=== PATIENT | female | born 1985 | race Caucasian/White ===

== ENCOUNTER 2018-11-02 16:33 | Inpatient (IN) ==
[2018-11-02] MEDS ORDERED: OXYTOCIN/DEXTROSE 5%-WATER 30 UNITS/500 ML BAG IV ONE (21:49)
[2018-11-02] MEDS ORDERED: NALBUPHINE HCL 10 MG/ML AMPUL IV PRN ×2 (21:49)
[2018-11-02] MEDS ORDERED: ONDANSETRON 4 MG TAB.RAPDIS PO PRN (21:49)
[2018-11-02] MEDS ORDERED: RINGER'S SOLUTION,LACTATED 1,000 ML IV ONE (21:49)
[2018-11-02] MEDS ORDERED: LIDOCAINE HCL 50 ML VIAL PERI PRN (21:49)
--- NOTE | 2018-11-02 22:04 | HP ---
Chief Complaint - Chief Complaint Date of Service: 11/02/18 Time of Service: 22:00 Chief Complaint: induction of labor History of Present Illness: The patient presented to the office for an unscheduled visit due to decreased movement. She had an NST in the office that was reactive but did have a deceleration. For that reason a BPP was ordered and the total score was 8/10 minus 2 points for breathing. She reported irregular ctx. She denied vaginal bleeding or loss of fluid. Fetus was active. Medical History (Last Reviewed 11/02/18 @ 17:05 by Roxanne Aquino RN) ADHD (attention deficit hyperactivity disorder) Chronic ITP (idiopathic thrombocytopenic purpura) Dr. [facility] Hypoglycemia Abnormal Pap smear of cervix Onset Date: ~2011 HPV History of wisdom tooth extraction Infectious mononucleosis Onset Date: ~2002 jaundice, caused ITP Dysmenorrhea Ovarian cyst Surgical History: Surgical History (Last Reviewed 11/02/18 @ 17:05 by Roxanne Aquino RN) History of colposcopy History of laparoscopy Onset Date: ~07/2014 Family History: Family History (Last Reviewed 11/02/18 @ 17:05 by Roxanne Aquino RN) Mother Benign heart murmur Uterine fibroid hysterectomy Sister Thyroid disease Father Alive and well Grandfather Cancer Prostate CA Celiac disease Social History: Preferred Language Thai Smoking Status Current every day smoker (Last Updated 11/02/18 @ 16:38 by Mikala Kowalski MD) No Social History Section defined Review Of Systems (GEN) - Review of Systems Generalized/Overall Review: Present: No Symptoms Reported Misc: All systems neg except as marked Allergies/Adverse Reactions: Allergies Allergy/AdvReac Type Severity Reaction Status Date / Time No Known Allergies Allergy Verified 11/02/18 15:48 Home Medications: HOME MEDICATIONS cyclobenzaprine 10 mg tablet 10 mg PO BID PRN #30 tab 10/14/18 [Last Taken 11/01/18 20:00] Pnv95/Iron Fum/Folic Acid [ Vitamin Tablet] 1 ea PO DAILY 11/02/18 [Last Taken Unknown] Exam - Exam Vital Signs: Vital Signs - Last Taken Temp 36.4 C 11/02/18 17:00 Pulse 89 11/02/18 17:00 Resp 18 11/02/18 17:00 BP 134/84 11/02/18 17:00 Pulse Ox 98 11/02/18 17:00 Constitutional: Present: Alert, Oriented x3, Cooperative, No distress Respiratory: Present: lungs clear, normal breath sounds Cardiovascular/Chest: Present: regular rate, rhythm, no murmur Abdomen: Present: soft, nontender, nondistended /Rectal: Present: Other - 2/40/-2 AROM for clear fluid, vertex Extremity: Present: non-tender, no calf tenderness, pedal edema, slow capillary refill Skin Exam: Present: normal color, warm/dry, no cyanosis Appearance: Present: appropriate appearance Eye contact: Present: cooperative Thoughts: Present: normal thought pattern Assessment/Plan - Narrative Narrative: 33 yo @ 37w 6d who has now met the criteria for pre-eclampsia without severe features. Other than proteinuria the pre-eclampsia labs are normal. Blood pressures are in the mild range and the patient is asymptomatic. The platelets are 145 consistent with the patient's history of ITP. FHT cat 1 AROM for clear fluid. Start pitocin GBS negative: prophylaxis not indicated
[2018-11-02] MEDS: RINGER'S SOLUTION,LACTATED 1,000 ML IV PRN (22:30)
[2018-11-03] MEDS ORDERED: ONDANSETRON HCL/PF 2 MG/ML VIAL IV PRN (00:44)
[2018-11-03] MEDS ORDERED: BUPIVACAINE HCL/0.9 % NACL/PF 250 ML EP PRN (00:44)
[2018-11-03] MEDS ORDERED: NALOXONE HCL 1 MG/1 ML SYRG IV PRN (00:44)
[2018-11-03] MEDS ORDERED: fentaNYL CITRATE/PF 50 MCG/ML AMPUL IT SCH (00:45)
--- NOTE | 2018-11-03 01:52 | ANES ---
Post Anesthesia Discharge - Transfer of Care Transfer of Care handoff given to nurse: Yes - Anesthesia Post Op Note Anesthesia Post Op Note: Care transferred to OB RN
--- NOTE | 2018-11-03 01:52 | ANES ---
Anesthesia Pre Procedure Eval Vitals/Labs: Last Vital Signs Temp 36.4 C 11/02/18 17:00 Pulse 89 11/02/18 17:00 Resp 18 11/02/18 17:00 BP 134/84 11/02/18 17:00 Pulse Ox 98 11/02/18 17:00 HOME MEDICATIONS cyclobenzaprine 10 mg tablet 10 mg PO BID PRN #30 tab 10/14/18 [Last Taken 11/01/18 20:00] Pnv95/Iron Fum/Folic Acid [ Vitamin Tablet] 1 ea PO DAILY 11/02/18 [Last Taken Unknown] Allergies/Adverse Reactions: Allergies Allergy/AdvReac Type Severity Reaction Status Date / Time No Known Allergies Allergy Verified 11/02/18 15:48 - Planned Procedure Planned Procedure: DECREASED MOVEMENT Medication List Reviewed:: Yes Allergies Verified: Yes Medical History (Last Reviewed 11/03/18 @ 01:51 by Macario Stone CRNA) ADHD (attention deficit hyperactivity disorder) Chronic ITP (idiopathic thrombocytopenic [facility]pura[facility] Abnormal Pap smear of cervix Onset Date: ~2011 HPV History of wisdom tooth extraction Infectious mononucleosis Onset Date: ~2002 jaundice, caused ITP Dysmenorrhea Ovarian cyst Surgical History (Last Reviewed 11/03/18 @ 01:51 by Macario Stone CRNA) History of colposcopy History of laparoscopy Onset Date: ~07/2014 Family History (Last Reviewed 11/03/18 @ 01:51 by Macario Stone CRNA) Mother Benign heart murmur Uterine fibroid hysterectomy Sister Thyroid disease Father Alive and well Grandfather Cancer Prostate CA Celiac disease - Family Anesthesia History Family History:: no untoward family reactions to anesthesia - Airway/Neck/Teeth Within Normal Limits:: Yes Teeth Condition: intact Denture Type: None Neck Exam: full range of motion Mallampatti Score: 2 Thyromental (T-M) distance: > 6 cm Mandibulo Hyoid distance: > 3 cm - Respiratory Respiratory Physical: lungs clear Smoking Status: Never smoker Sleep Apnea currently treated: No Sleep Apnea by current assessment: No - Cardiovascular Tolerate Activity: Good Heart Sounds: S1 & S2, Regular - Anesthesia Assessment and Plan ASA Class: PS, II, E Anesthesia Type Plan: Epidural Planned difficult intubation/equipment available: No
--- NOTE | 2018-11-03 01:53 | ANES ---
Post Anesthesia Assessment - Vital Signs Vitals: Last Vital Signs Temp 36.4 C 11/02/18 17:00 Pulse 89 11/02/18 17:00 Resp 18 11/02/18 17:00 BP 134/84 11/02/18 17:00 Pulse Ox 98 11/02/18 17:00 Airway Patency: Normal - Mental Status Level Of Consciousness: Awake - Pain Level Pain Score: 2 - N/V Assessment Dehydration:: No
--- NOTE | 2018-11-03 01:55 | ANES ---
Anesthesia Procedure Note Procedure Note: ANESTHESIA PROCEDURE NOTE Date of Procedure: 11/03/2018 Time of procedure: . Performed by: Ry Stone CRNA Utility Engineer: None. Preprocedure diagnosis: Active labor. Post procedure diagnosis: Same. Procedure: Insertion of labor epidural. Indications: The patient is a 33-year-old multigravid female in active labor requesting labor epidural for pain management. Findings: See below. Details of the procedure: The patient was placed in a sitting position. Back was prepped with DuraPrep. Patient was then draped in a sterile fashion. Lidocaine 1% was infiltrated to the skin and subcutaneous tissues at the level of the L3 4 interspace. The epidural space was identified using a 18-gauge Tuohy needle with [id number] technique. 20 mcg fentanyl was given intrathecally using a 27 ga. spinal needle. Epidural catheter was inserted without difficulty. Negative test dose was elicited using 3 mL of 2% preservative-free lidocaine plus epinephrine 1 200,000. The epidural catheter was then taped and secured in place. EBL: Minimal. Fluids: N/A. Specimen: N/A. Post procedure condition: The patient tolerated the procedure well. No complications were noted. Thank you for this consultation. Reyes CRNA
[2018-11-03] MEDS ORDERED: LIDOCAINE HCL/EPINEPHRINE 20 ML VIAL IJ ONE (02:04)
[2018-11-03] MEDS: RINGER'S SOLUTION,LACTATED 1,000 ML IV PRN (03:49)
--- NOTE | 2018-11-03 09:06 | PN ---
Progess Note - Interim Date: 11/03/18 Time: 09:04 Narrative: 11/03/18 09:04 Pt without complaints cvx 4-5 cm by last RN check FHT cat 2 for nonrecurrent variable decelerations ctx are regular. Continue to titrate pitocin up
[2018-11-03] MEDS ORDERED: BENZOCAINE/MENTHOL 81 SPRAY CAN TP PRN (11:05)
[2018-11-03] MEDS ORDERED: oxyCODONE HCL/ACETAMINOPHEN 1 TAB TABLET PO PRN (11:05)
[2018-11-03] MEDS ORDERED: OXYTOCIN/DEXTROSE 5%-WATER 30 UNITS/500 ML BAG IV ONE (11:05)
[2018-11-03] MEDS ORDERED: GLYCERIN/WITCH HAZEL LEAF 40 APPL BOX TP PRN (11:05)
[2018-11-03] MEDS ORDERED: SENNOSIDES 8.6 MG TABLET PO PRN (11:05)
[2018-11-03] MEDS ORDERED: HYDROCORTISONE 30 APPL TUBE TP PRN (11:05)
[2018-11-03] MEDS ORDERED: BISACODYL 10 MG SUPP.RECT RC PRN (11:05)
--- NOTE | 2018-11-03 11:17 | OR ---
Operative Report - Dictated Report Narrative: Date of delivery: 11/03/2018 Time of delivery: 1050 Gender: male weight: 3395 grams APGARS: 6/7/8 Procedure: VAVD The patient is a 33 year old @ 38w 0d who underwent a medical induction of labor due to pre-eclampsia without severe features. Labor was induced with pitocin and augmented with AROM. The patient progressed to complete dilation. A vacuum assisted vaginal delivery was undertaken for tachycardia alternating with bradycardia as well as maternal exhaustion. There were no pop offs of the vacuum. The total vacuum time was 45 seconds. The head delivered in the direct OA position. A tight nuchal cord was noted which was cut and clamped at the perineum. The rest of the infant was delivered atraumatically. The placenta was delivered by expression and appeared intact. Bilateral 1st degree vaginal lacerations were noted which were repaired with 2-0 vicryl in the standard surgical fashion. EBL: 150 mL Lacerations: bilateral 1st degree vaginal lacerations Specimens: placenta Definition: * The number of deliveries resulting in a live the patient experienced prior to current hospitalization * The previous delivery of live twins or any live multiple gestation is considered one live event. *If primagravida or nulliparous is documented select zero for the number of previous live births. Live Births: 1
[2018-11-03] MEDS: IBUPROFEN 800 MG TABLET PO PRN ×2 (11:50→17:57)
[2018-11-03] MEDS: oxyCODONE HCL/ACETAMINOPHEN 1 TAB TABLET PO PRN ×4 (11:50→21:17)
[2018-11-03] MEDS ORDERED: DOCUSATE SODIUM 100 MG CAPSULE PO SCH (21:00)
[2018-11-04] MEDS: IBUPROFEN 800 MG TABLET PO PRN (01:40)
[2018-11-04] MEDS: oxyCODONE HCL/ACETAMINOPHEN 1 TAB TABLET PO PRN (01:40)
[2018-11-04 06:53] VITALS: BP 137/87
--- NOTE | 2018-11-04 08:53 | PN ---
Subjective - Date and Time Seen Date: 11/04/18 Time: 08:52 Subjective Narrative: Pt without complaints Objective Objective Narrative: See vital signs - Review of Systems Generalized/Overall Review: Reports: No Symptoms Reported Misc: All systems neg except as marked - Vitals Vitals: Last Vital Signs Temp 36.3 C 11/04/18 06:51 Pulse 83 11/04/18 06:51 Resp 16 11/04/18 06:51 BP 137/87 11/04/18 06:51 Pulse Ox 100 11/04/18 06:51 - Exam Constitutional: Present: Alert, Oriented x3, Cooperative, No distress Abdomen: Present: soft, nontender, nondistended Extremity: Present: non-tender, no calf tenderness Skin Exam: Present: normal color, warm/dry, no cyanosis Appearance: Present: appropriate appearance Eye contact: Present: cooperative Thoughts: Present: normal thought pattern Cauti Physician Documentation - Urinary Catheter Management Urethral ([place]) Urethral Indwelling: No Date of Insertion: 11/03/18 Time of Insertion: 02:30 Date of Removal: 11/03/18 Time of Removal: 09:50 Assessment/Plan Plan Narrative: PPD 1 s/p VAVD Doing well Discharge home
== END 2018-11-04 09:10 | disposition home or self-care (01) | DRG 806 ==
LOC: OBCLINIC 16:33 → OB 20:45
PROVIDERS: ADMIT Obstetrics & Gynecology; ATTEND Obstetrics & Gynecology
CPT/HCPCS: 59025; 76818; 76819; 88307; J2405